=== PATIENT | male | born 1960 | race Caucasian/White ===

== ENCOUNTER 2023-06-27 10:35 | Emergency (ER) | payer BC, MEDICAID, SELFPAY ==
[2023-06-27 10:54] VITALS: BP 157/94; PULSE 68; RESP 18; TEMP 36.6; O2SAT 93; BMI 34.5
[2023-06-27 11:05] LABS: Basophils % 0.3 %; Eosinophils # 0.2 10^3/uL (0.0-0.8); Eosinophils % 2.1 %; Lymphocytes # 2.6 10^3/uL (0.8-4.8); Lymphocytes % 33.8 %; Mean Corpuscular HGB Conc 33.1 g/dL (30-55); Mean Corpuscular Hemoglobin 30.9 pg (27-33); Mean Corpuscular Volume 93.5 fl (82-101); Monocytes # 1.4 10^3/uL (0.2-0.9); Monocytes % 17.7 %; Neutrophils % 45.8 %; Nucleated Red Blood Cells % 0 %; Platelet Count 258 10^3/cmm (157-399); Red Blood Count 5.24 10^6/uL (3.85-5.65); Red Cell Distribution Width 12.6 % (12.1-15.1); White Blood Count 7.63 10^3/uL (3.29-11.43)
--- NOTE | 2023-06-27 11:16 | W.ED.MALEGU ---
HPI - Male Genitourinary General: Chief complaint: Urogenital-Male Stated complaint: abd pain, urinary problems Time Seen by Provider: 06/27/23 11:05 Limitations: language barrier (Use the leadership development consultant for [place] on the iPad) History of Present Illness: Patient presents to the ER with complaints of urinary retention like problems and low abdominal pelvic pain for the last 3 days. Patient has had this before in the past but not quite this severe. Patient denies any fever chills or low back pain. Patient is still able to urinate very very small amounts he provided us a sample of approximately 5 to 10 cc while in the ER. Review of Systems General: Reports: 10 or more systems reviewed and unremarkable except in HPI and below Physical Exam Const: COMMON NORMALS: no acute distress, average body habitus, patient oriented x3, healthy appearing, alert and well nourished Neck/C-Spine: COMMON NORMALS: no JVD Chest: COMMONS NORMALS: normal inspection of the chest and normal palpation of entire chest wall Resp: COMMON NORMALS: normal respiratory effort, No retractions, No use of accessory muscles and clear to auscultation bilaterally AUSCULTATION: clear to auscultation bilaterally Cardio: COMMON NORMALS: no JVD, regular rate, regular rhythm, S1 normal heart sound present, S2 normal heart sound present, No gallops present (Cardio), No clicks present (Cardio), No murmurs present (Cardio) and No rub (Cardio) RATE: regular rate RHYTHM: regular rhythm HEART SOUNDS: S1 normal heart sound present and S2 normal heart sound present GI: COMMON NORMALS: Normal to inspection, nondistended, normoactive bowel sounds present, Soft to palpation, No hepatosplenomegaly present and no masses; negative for non-tender (Tender to palpate over suprapubic region) PALPATION: Yes Soft to palpation and Yes No hepatosplenomegaly present Neuro: COMMON NORMALS: patient oriented x3 SENSORIUM/ORIENTATION: Yes alert Course Vital Signs: Vital signs: Vital Signs Temperature 98 F 06/27/23 10:54 Pulse Rate 74 06/27/23 11:33 Respiratory Rate 18 06/27/23 10:54 Blood Pressure 113/86 06/27/23 12:00 Pulse Oximetry 91 06/27/23 12:00 Oxygen Delivery Me thod Room Air 06/27/23 12:00 MDM - Male Medical Decision Making Bladder scan showed greater than 1000 cc. Lab work was obtained and was negative. Catheter was left in place. Patient should follow-up with his PCP within the next week for reevaluation and possible removal. Differential Diagnosis Likely acute retention of urine; Unlikely urinary tract infection, priapism, urethritis, epididymitis, genital herpes simplex, prostatitis or inguinal hernia Medical Records I reviewed the patient's medical records. Lab Data I reviewed the patient's lab results. 06/27/23 10:52 06/27/23 10:52 Laboratory Results WBC 7.63 10^3/uL (3.29-11.43) 06/27/23 10:52 RBC 5.24 10^6/uL (3.85-5.65) 06/27/23 10:52 Hgb 16.20 g/dL (11.27-16.99) 06/27/23 10:52 Hct 49.0 % (37-53) 06/27/23 10:52 MCV 93.5 fl (82-101) 06/27/23 10:52 MCH 30.9 pg (27-33) 06/27/23 10:52 MCHC 33.1 g/dL (30-55) 06/27/23 10:52 RDW 12.6 % (12.1-15.1) 06/27/23 10:52 Plt Count 258 10^3/cmm (157-399) 06/27/23 10:52 MPV 10.0 fL (7.4-10.4) 06/27/23 10:52 Neut % (Auto) 45.8 % 06/27/23 10:52 Lymph % (Auto) 33.8 % 06/27/23 10:52 Chambers % (Auto) 17.7 % 06/27/23 10:52 Eos % (Auto) 2.1 % 06/27/23 10:52 Baso % (Auto) 0.3 % 06/27/23 10:52 Neut # (Auto) 3.50 10^3/uL (1.8-7.7) 06/27/23 10:52 Lymph # (Auto) 2.6 10^3/uL (0.8-4.8) 06/27/23 10:52 Chambers # (Auto) 1.4 10^3/uL (0.2-0.9) H 06/27/23 10:52 Eos # (Auto) 0.2 10^3/uL (0.0-0.8) 06/27/23 10:52 Baso # (Auto) 0.0 10^3/uL (0.0-0.1) 06/27/23 10:52 Nucleated RBC % (auto) 0 % 06/27/23 10:52 Nucleated RBCs # 0.0 /100WBC 06/27/23 10:52 Sodium 139 mmol/L (136-145) 06/27/23 10:52 Potassium 4.6 mmol/L (3.5-5.1) 06/27/23 10:52 Chloride 103 mmol/L (98-107) 06/27/23 10:52 Carbon Dioxide 26 mmol/L (22-29) 06/27/23 10:52 Anion Gap 14.6 (5-19) 06/27/23 10:52 BUN 14 mg/dL (8-23) 06/27/23 10:52 Creatinine 0.7 mg/dL (0.7-1.2) 06/27/23 10:52 GFR Calculation 113.9 mL/min (90-130) 06/27/23 10:52 Glucose 111 mg/dL (65-115) 06/27/23 10:52 Calculated Osmolality 289 mOsm/kg (285-295) 06/27/23 10:52 Calcium 9.5 mg/dL (8.5-10.5) 06/27/23 10:52 Total Bilirubin 0.8 mg/dL (0.15-1.2) 06/27/23 10:52 AST 30 U/L (0-40) 06/27/23 10:52 ALT 48 U/L (0-41) H 06/27/23 10:52 Alkaline Phosphatase 83 U/L (40-130) 06/27/23 10:52 Total Protein 7.2 g/dL (6.6-8.7) 06/27/23 10:52 Albumin 4.5 g/dL (3.5-5.2) 06/27/23 10:52 Globulin 2.7 g/dL (1.3-4.6) 06/27/23 10:52 Lipase 47 U/L (13-60) 06/27/23 10:52 Urine Color Yellow (Yellow) 06/27/23 11:20 Urine Appearance Clear (CLEAR) 06/27/23 11:20 Urine pH 7 (5-7) 06/27/23 11:20 Ur Specific [place] 1.005 (1.005-1.030) 06/27/23 11:20 Urine Protein Neg (Negative) 06/27/23 11:20 Urine Glucose (UA) Norm (Normal) 06/27/23 11:20 Urine Ketones Negative (Negative) 06/27/23 11:20 Urine Blood Neg (Negative) 06/27/23 11:20 Urine Nitrate Negative (Negative) 06/27/23 11:20 Urine Bilirubin Neg (Negative) 06/27/23 11:20 Urine Urobilinogen Norm mg/dL (Negative) 06/27/23 11:20 Ur Leukocyte Esterase Negative (Negative) 06/27/23 11:20 All radiology interpretation(s) finalized by discharge Discharge Plan Discharge Patient Disposition: Home Clinical Impression: Acute urinary retention Condition: Stable Prescriptions: No Action valerian root 500 mg Capsule 500 - 1,000 mg PO TID Tylenol Ex Str Rapid Release 500 mg Tablet 500 mg PO Q6H PRN (Reason: Pain) ibuprofen 200 mg Tablet 200 mg PO Q6H PRN (Reason: Pain) Noshpa 1 - 2 tab PO TID Discharge Orders: Discharge ED (Routine); Ordered 06/27/23 Ordered By: Terry Anaya Patient Instructions: Urinary Retention in Men (ED) Activity Restrictions/Additional Instructions: Please follow-up with your family practice physician in approximately 3-5 days for further evaluation and treatment and probable removal of the Murillo catheter. Coding Level of Care Code ED Reclamation Engineer for Anjana Lanza
[2023-06-27 11:23] LABS: Alanine Aminotransferase 48 U/L (0-41); Albumin Level 4.5 g/dL (3.5-5.2); Alkaline Phosphatase 83 U/L (40-130); Anion Gap 14.6 (5-19); Aspartate Amino Transferase 30 U/L (0-40); Blood Urea Nitrogen 14 mg/dL (8-23); Calcium 9.5 mg/dL (8.5-10.5); Carbon Dioxide 26 mmol/L (22-29); Chloride 103 mmol/L (98-107); Globulin 2.7 g/dL (1.3-4.6); Glomerular Filtration Rate 113.9 mL/min (90-130); Glucose 111 mg/dL (65-115); Lipase 47 U/L (13-60); Osmolality Calculated 289 mOsm/kg (285-295); Potassium 4.6 mmol/L (3.5-5.1); Sodium 139 mmol/L (136-145); Total Bilirubin 0.8 mg/dL (0.15-1.2); Total Protein 7.2 g/dL (6.6-8.7)
--- NOTE | 2023-06-27 11:27 | PC.PHAR ---
pts verified pts medications by google translate-pts states the pt is not taking any prescription medications states the medications entered are what he is taking
[2023-06-27 11:33] VITALS: BP 170/9; BP 170/99; PULSE 74; O2SAT 94; O2SAT 96
[2023-06-27 11:40] LABS: Add Urine Microscopic? NO; Charge for UA Resulting for Rev
[2023-06-27 11:43] LABS: Bilirubin Urine Neg (Negative); Blood Urine Neg (Negative); Glucose Urine UA Norm (Normal); Ketones Urine Negative (Negative); Leukocyte Esterase Urine Negative (Negative); Nitrate Urine Negative (Negative); Protein Urine Neg (Negative); Specific Gravity, Urine 1.005 (1.005-1.030); Urine Appearance Clear (CLEAR); Urine Color Yellow (Yellow); Urobilinogen Urine Norm (Negative); pH Urine 7 (5-7)
[2023-06-27 11:45] VITALS: BP 156/116; O2SAT 94
[2023-06-27 12:00] VITALS: BP 113/86; O2SAT 91
[2023-06-27 13:13] VITALS: BP 152/103; O2SAT 92
== END 2023-06-27 13:12 | disposition home or self-care (01) ==
PROVIDERS: Physician Assistant; Emergency Provider Emergency Medicine
DX: R33.9 Retention of urine, unspecified (principal)
CPT/HCPCS: 36415; 51702; 51798; 80053; 81003; 83690; 85025; 99283

== ENCOUNTER 2023-06-28 09:29 | Emergency (ER) | payer BC, MEDICAID, SELFPAY ==
--- NOTE | 2023-06-28 09:36 | PC.PHAR ---
medications entered are from the pts visit on 06/27/23 using [employer] translate with pt and his
[2023-06-28 09:38] VITALS: BP 168/89; PULSE 82; RESP 16; TEMP 36.6; O2SAT 95; BMI 30.2
--- NOTE | 2023-06-28 10:16 | ED_ITS ---
HPI - Male Genitourinary General: Chief complaint: Urogenital-Male Stated complaint: wants cathiter removed Time Seen by Provider: 06/28/23 09:37 Source: patient Mode of arrival: ambulatory History of Present Illness: 63-year-old male presents emergency room he was seen yesterday for acute urinary retention a Murillo Catheter was placed he was discharged home with catheters been uncomfortable he came into [facility] he wanted to have it removed he had been told to have it removed next week they are telling him at the doctor's office he cannot get in next weeks or return to the emergency room is unsure what to do next. He does not speak [place] a translation service was used to communicate with the patient. He is not having any fever sweats or chills. Is not having any problems with catheter he just wants to know when he can be removed he finds it quite irritating. Associated symptoms: Deny discharge, dysuria, fevers/chills, hematuria, nausea, rash, swelling, urinary incontinence, urinary retention, mass, vomiting or other Review of Systems GI: Denies: nausea or vomiting : Denies: dysuria, urinary incontinence or hematuria Physical Exam Const: COMMON NORMALS: no acute distress GENERAL APPEARANCE: cooperative and comfortable ORIENTATION/CONSCIOUSNESS: Yes awake, Yes oriented to person, Yes oriented to place and Yes oriented to time HENMT: COMMON NORMALS: normocephalic, atraumatic and hearing grossly normal bilaterally HEAD & SCALP: normocephalic and atraumatic Resp: COMMON NORMALS: normal respiratory effort, No retractions, No use of accessory muscles and clear to auscultation bilaterally AUSCULTATION: clear to auscultation bilaterally Cardio: COMMON NORMALS: regular rate, regular rhythm and No murmurs present (Cardio) RATE: regular rate RHYTHM: regular rhythm GI: COMMON NORMALS: Soft to palpation and No hepatosplenomegaly present AUSCULTATION: Yes normoactive bowel sounds PALPATION: Yes Soft to palpation, No Tenderness to palpation present (GI), No Guarding due to palpation present (GI) and Yes No hepatosplenomegaly present Extremity: COMMON NORMALS: normal to inspection, capillary refill normal, no clubbing, cyanosis or edema, no calf tenderness and no pedal edema Neuro: SENSORIUM/ORIENTATION: Yes oriented to person, Yes oriented to place and Yes oriented to time Skin: COMMON NORMALS: no rashes or lesions noted GENERAL SKIN EXAM: no rashes or lesions noted Course Vital Signs: Vital signs: Vital Signs Temperature 97.9 F 06/28/23 09:38 Pulse Rate 82 06/28/23 09:38 Respiratory Rate 16 06/28/23 09:38 Blood Pressure 168/89 06/28/23 09:38 Pulse Oximetry 95 06/28/23 09:38 Oxygen Delivery Me thod Room Air 06/28/23 09:38 MDM - Male Medical Decision Making Discharge home on leg bag well Case management make arrangements for urology follow-up. Start tamsulosin 1.4 nightly Medical Records I reviewed the patient's medical records. Lab Data I reviewed the patient's lab results. No radiology studies performed this visit Discharge Plan Discharge Patient Disposition: Home Clinical Impression: Acute urinary retention Condition: Stable Prescriptions: New tamsulosin 0.4 mg capsule 0.4 mg PO DAILY Qty: 30 0RF No Action valerian root 500 mg Capsule 500 - 1,000 mg PO TID acetaminophen [Tylenol Ex Str Rapid Release] 500 mg Tablet 500 mg PO Q6H PRN (Reason: Pain) ibuprofen 200 mg Tablet 200 mg PO Q6H PRN (Reason: Pain) Noshpa 1 - 2 tab PO TID Discharge Orders: Discharge ED (Routine); Ordered 06/28/23 Ordered By: Amos Moreno Discharge Diet: Usual diet Discharge Activity: Resume usual activity Patient Instructions: Urinary Retention in Men (ED), Opioid Safety, Pain Management Activity Restrictions/Additional Instructions: Thank you for choosing [facility] for your healthcare needs today. Please realize this is an emergency room and that we are providing you with a medical screening exam and this may not be complete and all inclusive of all the testing and or work up that you may need to determine your ailment or severity of your illness. It is very important that you follow up as instructed or that you return to the Emergency Department should you have concerns or if your condition changes or worsens in any way. market risk manager will make arrangements for follow-up with urology for you. Coding Level of Care Code ED Commercial Stripper for Anjana Lanza
[2023-06-28 10:22] VITALS: BP 127/74; PULSE 74; RESP 16; O2SAT 97
[2023-06-28 10:24] VITALS: O2SAT 97
[2023-06-28 10:25] VITALS: BP 127/74; PULSE 74; RESP 16; O2SAT 97
--- NOTE | 2023-07-09 10:12 | DCPLANNER ---
Spoke with today she states her sister made an appointment with Dr. Canela urology -
== END 2023-06-28 10:26 | disposition home or self-care (01) ==
PROVIDERS: Emergency Provider Family Medicine
DX: R33.9 Retention of urine, unspecified (principal)
CPT/HCPCS: 99283

== ENCOUNTER 2023-07-02 08:17 | Emergency (ER) | payer BC, MEDICAID, SELFPAY ==
--- NOTE | 2023-07-02 08:34 | W.ED.GENADLT ---
[facility] - General Adult General: Stated complaint: urinary problem, remove catheter Time Seen by Provider: 07/02/23 08:22 Source: patient Mode of arrival: ambulatory Limitations: no limitations History of Present Illness: 63-year-old male who was seen here on Friday for urinary attention he had a Murillo in place since then he states not been able to follow-up with PCP and he wants the Murillo removed. He is never had issues with retention in the past he has been on Flomax denies any dysuria. Associated symptoms: Deny chest pain, dyspnea, headache(s), nausea, rash or vomiting Review of Systems Const: Denies: fever(s), chills, body aches or change in appetite Eyes: Denies: blurry vision or eye discomfort ENMT: Denies: throat pain or dental pain Card: Denies: chest pain Resp: Denies: dyspnea GI: Denies: abdominal pain, nausea, vomiting or diarrhea : Denies: dysuria Musc: Denies: neck pain or back pain Skin/Breast: Denies: rash Neuro: Denies: headache(s) Physical Exam Const: COMMON NORMALS: no acute distress, patient oriented x3 and healthy appearing HENMT: COMMON NORMALS: normocephalic and atraumatic HEAD & SCALP: normocephalic and atraumatic Eye: COMMON NORMALS: conjunctivae normal CONJUNCTIVA: Yes conjunctivae normal Neck/C-Spine: COMMON NORMALS: full ROM and supple Chest: COMMONS NORMALS: normal inspection of the chest Resp: COMMON NORMALS: normal respiratory effort Cardio: COMMON NORMALS: regular rate, regular rhythm and No murmurs present (Cardio) RATE: regular rate RHYTHM: regular rhythm GI: COMMON NORMALS: Normal to inspection, nondistended, normoactive bowel sounds present, Soft to palpation, non-tender and no masses PALPATION: Yes Soft to palpation Extremity: COMMON NORMALS: normal to inspection and full ROM Neuro: COMMON NORMALS: patient oriented x3, moves all extremities and no focal motor deficits Psych: COMMON NORMALS: mental status grossly normal, Normal thought process present and cooperative THOUGHT PROCESS: Normal thought process present Skin: COMMON NORMALS: no rashes or lesions noted and no wounds GENERAL SKIN EXAM: no rashes or lesions noted [facility] - General Adult Medical Decision Making Patient presents here wanting his catheter removed I informed him that he may retain urine again he understands this he states he wants it removed he believes he can urinate on his own. I informed if he is not able to urinate at home he left return to have the catheter replaced he agrees and understands the plan Medical Records I reviewed the patient's medical records. No radiology studies performed this visit Discharge Plan Discharge Patient Disposition: Home Clinical Impression: Encounter for Murillo catheter removal Condition: Stable Prescriptions: No Action valerian root 500 mg Capsule 500 - 1,000 mg PO TID acetaminophen [Tylenol Ex Str Rapid Release] 500 mg Tablet 500 mg PO Q6H PRN (Reason: Pain) ibuprofen 200 mg Tablet 200 mg PO Q6H PRN (Reason: Pain) Noshpa 1 - 2 tab PO TID tamsulosin 0.4 mg capsule 0.4 mg PO DAILY Qty: 30 0RF Discharge Orders: Discharge ED (Routine); Ordered 07/02/23 Ordered By: Rory Mata Discharge Diet: Advance as tolerated Discharge Activity: Resume usual activity Patient Instructions: Urinary Retention Coding Level of Care Code ED Buffing Machine Tender for Anjana Lanza
[2023-07-02 08:35] VITALS: BP 149/86; PULSE 76; RESP 18; O2SAT 95
[2023-07-02 08:38] VITALS: O2SAT 98
== END 2023-07-02 08:46 | disposition home or self-care (01) ==
PROVIDERS: Emergency Provider Emergency Medicine
DX: Z46.6 Encounter for fitting and adjustment of urinary device (principal)
CPT/HCPCS: 99282

== ENCOUNTER 2023-07-02 14:14 | Emergency (ER) | payer BC, MEDICAID, SELFPAY ==
--- NOTE | 2023-07-02 14:30 | ED_ITS ---
HPI - General Adult General: Chief complaint: Urogenital-Male Stated complaint: unable to urinate Time Seen by Provider: 07/02/23 14:27 Source: patient Mode of arrival: ambulatory Limitations: no limitations History of Present Illness: 63-year-old male who was seen here this morning as he is wanting his Murillo removed he has not been able to urinate since then he does have some suprapubic pain denies any fevers denies any worsening improving factors. Associated symptoms: Deny chest pain, dyspnea, headache(s), nausea, rash or vomiting Review of Systems Const: Denies: fever(s), chills, body aches or change in appetite Eyes: Denies: blurry vision or eye discomfort ENMT: Denies: throat pain or dental pain Card: Denies: chest pain Resp: Denies: dyspnea GI: Denies: abdominal pain, nausea, vomiting or diarrhea : Reports: difficulty urinating; Denies: dysuria Musc: Denies: neck pain or back pain Skin/Breast: Denies: rash Neuro: Denies: headache(s) Physical Exam Const: COMMON NORMALS: no acute distress, patient oriented x3 and healthy appearing HENMT: COMMON NORMALS: normocephalic and atraumatic HEAD & SCALP: normocephalic and atraumatic Neck/C-Spine: COMMON NORMALS: full ROM and supple Chest: COMMONS NORMALS: normal inspection of the chest Resp: COMMON NORMALS: normal respiratory effort GI: COMMON NORMALS: Normal to inspection, nondistended, normoactive bowel sounds present, Soft to palpation, non-tender and no masses PALPATION: Yes Soft to palpation Extremity: COMMON NORMALS: normal to inspection and full ROM Neuro: COMMON NORMALS: patient oriented x3, moves all extremities and no focal motor deficits Psych: COMMON NORMALS: mental status grossly normal, Normal thought process present and cooperative THOUGHT PROCESS: Normal thought process present Skin: COMMON NORMALS: no rashes or lesions noted and no wounds GENERAL SKIN EXAM: no rashes or lesions noted Course Vital Signs: Vital signs: Vital Signs Temperature 98.2 F 07/02/23 14:40 Pulse Rate 107 H 07/02/23 14:40 Respiratory Rate 16 07/02/23 14:40 Blood Pressure 149/116 07/02/23 14:40 Pulse Oximetry 92 07/02/23 14:40 Oxygen Delivery Me thod Room Air 07/02/23 14:40 MDM - General Adult Medical Decision Making Patient presents with urinary retention he had a Murillo placed here discharged with leg bag he is to follow-up with urology return if worsening he understands agrees to plan Medical Records I reviewed the patient's medical records. No radiology studies performed this visit Discharge Plan Discharge Patient Disposition: Home Clinical Impression: Acute urinary retention Condition: Stable Prescriptions: No Action valerian root 500 mg Capsule 500 - 1,000 mg PO TID acetaminophen [Tylenol Ex Str Rapid Release] 500 mg Tablet 500 mg PO Q6H PRN (Reason: Pain) ibuprofen 200 mg Tablet 200 mg PO Q6H PRN (Reason: Pain) Noshpa 1 - 2 tab PO TID tamsulosin 0.4 mg capsule 0.4 mg PO DAILY Qty: 30 0RF Discharge Orders: Discharge ED (Routine); Ordered 07/02/23 Ordered By: Rory Mata Discharge Diet: Advance as tolerated Discharge Activity: Resume usual activity Patient Instructions: Urinary Retention in Men (ED) Coding Level of Care Code ED Tank Systems Maintainer for Anjana Lanza
[2023-07-02 14:40] VITALS: BP 149/116; PULSE 107; RESP 16; TEMP 36.8; O2SAT 92; BMI 33.5
== END 2023-07-02 16:20 | disposition home or self-care (01) ==
PROVIDERS: Emergency Provider Emergency Medicine
DX: R33.9 Retention of urine, unspecified (principal)
CPT/HCPCS: 51702; 99283

== ENCOUNTER 2023-07-12 08:45 | Emergency (ER) | payer BC, MEDICAID, SELFPAY ==
[2023-07-12 10:30] VITALS: BP 154/95; PULSE 95; RESP 18; TEMP 36.7; O2SAT 96
--- NOTE | 2023-07-12 11:29 | W.ED.MALEGU ---
HPI - Male Genitourinary General: Chief complaint: Urogenital-Male Stated complaint: wants to get cathiter removed Time Seen by Provider: 07/12/23 11:12 Source: patient, family and director food and beverage Mode of arrival: ambulatory Limitations: no limitations and language barrier History of Present Illness: This patient returns to the emergency department desiring to have his Murillo catheter removed. Communication was done via [employer] with both he and his spouse. He is apparently had 5 separate either clinic or ED visits regarding recurrent urinary retention. He had his Murillo removed at least twice with recurrent retention and a Murillo replaced. He has a follow-up appointment with urology in [place] but not till the end of August and is quite frustrated. He denies any fevers or chills. He apparently was seen in the ED in [facility] started on Cipro and is taken for 2 days but states he is had muscle cramps as a result of this medication. He again denies any fevers or chills. He denies any hematuria. He denies any history of renal failure or any other chronic medical problems. He has been taking the Cipro as well as his tamsulosin and his finasteride. Associated symptoms: Deny dysuria, hematuria, nausea or vomiting Review of Systems Const: Denies: fever(s), chills or body aches GI: Denies: abdominal pain, nausea, vomiting or diarrhea : Denies: flank pain, difficulty urinating, dysuria, urinary frequency or hematuria Musc: Denies: back pain, extremity pain or extremity swelling Skin/Breast: Denies: rash Physical Exam Narrative: EXAM NARRATIVE: He appears to be comfortable in no acute distress. He moves around the examination room unaided and a normal gait and station. Const: COMMON NORMALS: no acute distress, average body habitus and patient oriented x3 GENERAL APPEARANCE: cooperative HENMT: COMMON NORMALS: normocephalic and moist oral mucous membranes HEAD & SCALP: normocephalic Eye: COMMON NORMALS: Equal, round and reactive pupils present and conjunctivae normal CONJUNCTIVA: Yes conjunctivae normal PUPIL: Yes Equal, round and reactive pupils present Neck/C-Spine: COMMON NORMALS: full ROM Resp: COMMON NORMALS: normal respiratory effort EFFORT & INSPECTION: Yes able to speak in complete sentences Cardio: COMMON NORMALS: regular rate RATE: regular rate GI: COMMON NORMALS: Normal to inspection, nondistended, normoactive bowel sounds present, Soft to palpation and non-tender PALPATION: Yes Soft to palpation : COMMON NORMALS: Yes no CVA tenderness BLADDER/KIDNEY EXAM: Yes catheter in place Catheter type (Male): urethral (Appears to be draining clear urine. No meatal irritation noted.) and Yes no CVA tenderness Back/Pelvis: COMMON NORMALS: no CVA tenderness and thoraco-lumbar ROM normal Extremity: COMMON NORMALS: normal to inspection and full ROM Neuro: COMMON NORMALS: patient oriented x3, moves all extremities and no focal motor deficits Skin: COMMON NORMALS: no rashes or lesions noted GENERAL SKIN EXAM: no rashes or lesions noted Course Reevaluation(s): Reevaluation #1: Patient had his Murillo catheter removed. Still has +1 bacteria and there is some question whether he is tolerating the Cipro or not. Will go ahead and stop the Cipro and add Bactrim to cover him for any occult lower urinary upper urinary tract infection. Time: 12:10 Vital Signs: Vital signs: Vital Signs Temperature 98.0 F 07/12/23 10:30 Pulse Rate 95 07/12/23 10:30 Respiratory Rate 18 07/12/23 10:30 Blood Pressure 154/95 07/12/23 10:30 Pulse Oximetry 96 07/12/23 10:30 Oxygen Delivery Me thod Room Air 07/12/23 10:30 MDM - Male Medical Decision Making Given the patient's history of urinary retention and recurrence after removal of Murillo it is likely that removal of Murillo will result in a reoccurrence of urinary retention. The patient and spouse are somewhat frustrated in that they cannot seem to get a resolution of this issue but this is not an uncommon scenario and urinary retention and prostatic hypertrophy and given the urologic limitations a prolonged wait for an appointment is rather close to the norm in this area. I did explain to them that we can remove the catheter again today and that there will be likelihood albeit unknown but particularly high that he will have to have the catheter replaced. Both he and his spouse voiced understanding of that possibility as well as the alternative which is to leave the catheter in place. We will place a consult into social work lecturer to see if we can get him a appointment with the urologist in [place] sooner than 08 September which allegedly his appointment is with urology in [place]. He does not display any signs of sepsis or other concerning issues at this time his vital signs are normal he has not had history of fevers chills etc. Urinalysis was evaluated and noted to have hematuria which is not unexpected given his Murillo as well as 1+ bacteria. He is on Cipro currently but does not seem to be tolerating that well. I think we will have him discontinue that and I will give him 5 days of Bactrim to clear any potential bacteria. As noted we will place a consult into urology I also discussed the likelihood of catheter replacement and that they are welcome to return to the emergency department at any time. Again all communication was transpired through [employer] but they seem to be very satisfied and not confused at the time of my interaction. Medical Records I reviewed the patient's medical records. Lab Data I reviewed the patient's lab results. Laboratory Results Urine Color Yellow (Yellow) 07/12/23 11:30 Urine Appearance Clear (CLEAR) 07/12/23 11:30 Urine pH 5 (5-7) 07/12/23 11:30 Ur Specific [place] 1.010 (1.005-1.030) 07/12/23 11:30 Urine Protein Neg (Negative) 07/12/23 11:30 Urine Glucose (UA) Norm (Normal) 07/12/23 11:30 Urine Ketones Negative (Negative) 07/12/23 11:30 Urine Blood 3+ (Negative) H 07/12/23 11:30 Urine Nitrate Negative (Negative) 07/12/23 11:30 Urine Bilirubin Neg (Negative) 07/12/23 11:30 Urine Urobilinogen Norm mg/dL (Negative) 07/12/23 11:30 Ur Leukocyte Esterase Negative (Negative) 07/12/23 11:30 Urine RBC 40-50 /hpf (0-2) H 07/12/23 11:30 Urine WBC 0-4 /hpf (0-5) H 07/12/23 11:30 Ur Squamous Epith Cells 0-4 /hpf (0-5) H 07/12/23 11:30 Amorphous Sediment Not Reportable 07/12/23 11:30 Urine Bacteria 1+ /hpf (NONE) H 07/12/23 11:30 Urine Mucus 1+ /hpf 07/12/23 11:30 No radiology studies performed this visit Discharge Plan Discharge Patient Disposition: Home Clinical Impression: Acute retention of urine Condition: Stable Prescriptions: New sulfamethoxazole-trimethoprim [Bactrim DS] 800-160 mg tablet 1 tab PO DAILY 7 Days Qty: 14 0RF Discontinued ciprofloxacin HCl 500 mg tablet 500 mg PO BID 7 Days Qty: 14 0RF No Action valerian root 500 mg Capsule 500 - 1,000 mg PO TID acetaminophen [Tylenol Ex Str Rapid Release] 500 mg Tablet 500 mg PO Q6H PRN (Reason: Pain) ibuprofen 200 mg Tablet 200 mg PO Q6H PRN (Reason: Pain) Noshpa 1 - 2 tab PO TID tamsulosin 0.4 mg capsule 0.4 mg PO DAILY Qty: 30 0RF Discharge Orders: Discharge ED (Routine); Ordered 07/12/23 Ordered By: Edin Dexter Discharge Diet: Usual diet Discharge Activity: Increase activity as tolerated Patient Instructions: Opioid Safety, Pain Management Activity Restrictions/Additional Instructions: We have changed your antibiotic to 1 that you are more likely to tolerate. We are giving you this medication because you have some bacteria in your urine and we do not want this to progress to a serious infection. As we discussed we have removed your catheter. You should monitor your urine output and if you have not urinated with an 8-12 hours of being discharged from the emergency department you should return to be reevaluated to make sure you are not retaining urine. If you develop increasing pain, fevers, chills or any other concerns return to this or the nearest emergency department. Stop the ciprofloxacin and take the Bactrim as prescribed. Continue your other prescribed medicines to help reduce your likelihood of urinary retention. We have placed a consultation to our case management person who will attempt to speed up your urology appointment. You should receive a telephone call in the next 3 to 4 days or certainly by Friday of the coming week. Coding Level of Care Code ED Documentation Consultant for Anjana Lanza
[2023-07-12 11:52] LABS: Add Urine Microscopic? YES; Bilirubin Urine Neg (Negative); Blood Urine 3+ (Negative); Glucose Urine UA Norm (Normal); Ketones Urine Negative (Negative); Leukocyte Esterase Urine Negative (Negative); Nitrate Urine Negative (Negative); Protein Urine Neg (Negative); Urine Appearance Clear (CLEAR); Urine Color Yellow (Yellow); Urobilinogen Urine Norm (Negative); pH Urine 5 (5-7)
[2023-07-12 11:53] LABS: Add Urine Culture? Yes; Bacteria Urine 1+ /hpf; Mucus Urine 1+ /hpf; RBC Urine 40-50 /hpf (0-2); Squamous Epithelial Cell Urine 0-4 /hpf (0-5); WBC Urine 0-4 /hpf (0-5)
--- NOTE | 2023-07-12 12:20 | PC.NURSE ---
pt requests that sister be contacted in [facility] to his appt because she speaks better albanian. Richa [phone]
--- NOTE | 2023-07-14 10:06 | DCPLANNER ---
Dr. Sheth called about an update for this patient urology appointment. I advised I will be following up with [facility] this morning to confirm they received paperwork on this patient from Friday (07-11). I spoke with [facility] u[facility] clinic this morning and was told that she is unsure if the referral came through and to re-fax the paperwork to another fax number of [phone] and they are behind approximately 2 weeks behind on getting to referrals. I told [facility] I will resend referral just in case they did not receive it. I reached out to Maira-upper caser to see if she can follow up with this referral and to see if she can get an appointment with a urologist in [place] for me.
--- NOTE | 2023-07-14 10:09 | PC.SOCIAL ---
Urology Referral Was notified by that patient was needing a urology referral and requested assistance. Patient has been to ER 5 times since middle of June, all urology related. Called [facility] in [place], left a voicemail requesting a call back regarding referral and expedited review. [facility]. Reviewed notes; Erinn charted that she spoke with patient's on 07/09 and patient had been set up with Dr. Canela. Called patient's sister to confirm this, she states that they need the appt date/time, as they called patient and there was a language barrier. Called to Dr. Canela office at [facility] in [place], and spoke with Aroldo, he does not have patient in their system.
--- NOTE | 2023-07-14 10:50 | PC.SOCIAL ---
Spoke with Hardik MarcelinoyTita. She states that they have tried to contact patient with appt date/time. She states that their severity of illness coordinator will have to be the one to contact patient with appt. Explained language barrier and that patient prefers that they call his sister Richa with appt as she speaks better french. She states that the coordinator will call her today with appt information.
== END 2023-07-12 12:28 | disposition home or self-care (01) ==
PROVIDERS: Emergency Provider Emergency Medicine
DX: R33.9 Retention of urine, unspecified (principal)
CPT/HCPCS: 81001; 87086; 99283